=== PATIENT | female | born 1940 | race Caucasian/White ===

== ENCOUNTER → 2017-02-23 | Day surgery (SDC) | payer MEDICARE ==
--- NOTE | 2017-02-21 08:56 | MH ---
cc: JOSÉ MIGUEL BLAND M.D. DATE OF ADMISSION: 02/23/2017 DATE OF : 1940 CHIEF COMPLAINT Right ear serous otitis. HISTORY OF PRESENT ILLNESS This is a 76-year-old female with ear pressure on the right. She was treated with medical therapy, showed serous otitis did not improve. She is not a candidate for office tube and is brought to the operating room for right myringotomy and T-tube under general anesthesia. ALLERGIES No known drug allergies. MEDICATIONS 1. Fluticasone. 2. Levoxyl. PHYSICAL EXAMINATION GENERAL: A well-developed, well-nourished female in no apparent distress. HEENT: Normocephalic, atraumatic. Extraocular motions intact. External ear canals clear. The tympanic membrane on the right is retracted with serous fluid. Nasal exam shows no lesions. Lips, oral mucosa and oropharynx show no lesion. NECK: No masses. CHEST: Clear to auscultation. HEART: Regular rate. ABDOMEN: Soft. EXTREMITIES: No lesion. NEUROLOGIC: Nonfocal. ASSESSMENT AND PLAN This is a 76-year-old female with right serous otitis to undergo right myringotomy and T-tube under general anesthesia. The risks and benefits were discussed with the patient. The risks include but are not limited to those of anesthesia, bleeding, unfavorable scarring, TM perforation, early tube extrusion, tube retention requiring removal of tube, otorrhea requiring removal, cholesteatoma and hearing loss. The patient states she understands and accepts the risks of the procedure. MD JEMMA Vora/ULI /8:49 AM /8:55 AM NICOL
[~2017-02-23] VITALS: Ht 165.1 cm; Wt 65.0 kg
[~2017-02-23] MED LIST: ACETAMINOPHEN/HYDROcodone 325 MG/5 MG TAB PO PRN; CALC1TAB12 PO; CHLORHEXIDINE GLUCONATE 2 % 1 PACK (2 CLOTHS) TOPICAL PRN; DO NOT ADM ANY ANTICOAGULANT DRUGS PRN; INSULIN HUMAN REGULAR 1,000 UNITS/10 ML VIAL SQ PRN; LACTATED RINGER'S 1000 ML IV PRN; METOPROLOL TARTRATE 25 MG TAB PO PRN; MIDAZOLAM HCL 2 MG/2 ML VIAL ONE; MORPHINE SULFATE 4 MG/ML INJ IV PRN; MULTTAB67 PO; OFLOXACIN 0.3% OPTH SOLN 5 ML BTL ONE; ONDANSETRON HCL 4 MG/2 ML VIAL IV PUSH PRN; POVIDONE IODINE 5% (ANTISEPSIS KIT) 4 APPLICATIONS EACH NARE PRN; PROPOFOL 200 MG/20 ML AMP IV ONE; SODIUM CHLORID 0.9% 500 ML IV PRN; SYNT88TA PO; [UNRECOGNIZED DRUG - CODE] PO
[2017-02-23 08:19] VITALS: BP 112/71; PULSE 76; RESP 16; TEMP 98.9; O2SAT 96
[2017-02-23 09:10] LABS: AUTOMATED NEUTROPHIL # 3.4 TH/MM3 (1.8-7.7); BASOPHIL % 0.7 % (0.0-2.0); EOSINOPHIL # 0.3 TH/MM3 (0-0.4); EOSINOPHIL % 5.1 % (0.0-4.0); HEMATOCRIT 37.9 % (35.0-46.0); HEMO FLAGS DIFF FINAL; LYMPH % 22.9 % (9.0-44.0); LYMPHOCYTE # 1.3 TH/MM3 (1.0-4.8); MEAN CELL VOLUME 93.2 FL (80.0-100.0); MEAN CORPUSCULAR HEMOGLOBIN 31.7 PG (27.0-34.0); MONO % 11.5 % (0.0-8.0); NEUT % 59.8 % (16.0-70.0); PLATELET COUNT 148 TH/MM3 (150-450); RED BLOOD COUNT 4.07 MIL/MM3 (4.00-5.30); RED CELL DISTRIBUTION WIDTH 13.3 % (11.6-17.2); WHITE BLOOD COUNT 5.7 TH/MM3 (4.0-11.0)
--- NOTE | 2017-02-23 09:47 | MP ---
cc: JOSÉ MIGUEL BLAND DATE OF SURGERY 02/23/2017 INDICATION This is [id number] female with chronic otitis on the right. Plan for right myringotomy and T-tube. PREOPERATIVE DIAGNOSIS Chronic otitis media with effusion. POSTOPERATIVE DIAGNOSIS Chronic otitis media with effusion. PROCEDURE PERFORMED Right myringotomy, T-tube PROCEDURE The patient brought into the operating room, placed in the supine position and successfully placed under general anesthesia and prepared in the usual fashion for this fashion. The right ear was examined under the microscope, cleared of debris, a myringotomy incision made anterior inferiorly. Serous fluid suctioned from the middle ear and a pressure equalization tube was placed without complication. Ofloxin drops applied. The patient tolerated the procedure well, was awakened and taken to the recovery in stable condition. MD JEMMA Vora/MANDI /9:33 AM /9:39 AM
[2017-02-23 12:17] VITALS: BP 105/69; PULSE 78; RESP 16; TEMP 97.3; O2SAT 95
--- NOTE | 2017-02-23 14:22 | EKG ---
Date Performed: 02/23/2017 Time Performed: 08:08:05 PTAGE: 76 years EKG: Sinus rhythm NORMAL ECG NO PREVIOUS TRACING DOCTOR: Reji Edwards Interpretating Date/Time 02/23/2017 14:20:51
== END | disposition home or self-care (01) ==
LOC: HSDC 07:34
PROVIDERS: ATTEND Specialist
DX: H65.21 Chronic serous otitis media, right ear (principal); Z01.810 Encounter for preprocedural cardiovascular examination; Z01.818 Encounter for other preprocedural examination
CPT/HCPCS: 00126; 69436; 85025; 93005; J2250; J7120